=== PATIENT | female | born 1985 | race Caucasian/White ===

== ENCOUNTER 2019-04-25 02:24 | Day surgery (SDC) | payer OTHER, SELFPAY ==
[2019-04-24 12:33] VITALS: BMI 41.3
[2019-04-25 07:49] VITALS: BP 119/63; PULSE 76; RESP 16; TEMP 36.3; O2SAT 97
[2019-04-25] MEDS: LACTATED RINGERS 1,000 ML 150 ML IV CONT (08:07)
--- NOTE | 2019-04-25 08:19 | PM.HPGS ---
History of Present Illness History of Present Illness Consent: Risks, benefits, and alternatives have been discussed and questions answered. Patient agrees to proceed with procedure. Chief complaint: Blood In Stool Narrative: Lisa Brooks is a 33 year old female her menses saw blood in her stools. It was bright red. She also has had a change in bowel habits. She has a great deal of urgency at times and a sensation that she needs to have a bowel movement but may pass very little stool. Her stools also had been loose lately. Meds Home Medications and Allergies Home Medications Medication Instructions Recorded Confirmed Type fluticasone propionate [Flonase 2 spray INTRANASAL DAILY PRN 04/24/19 04/25/19 History Allergy Relief] Allergies Allergy/AdvReac Type Severity Reaction Status Date / Time Sulfa (Sulfonamide Allergy Severe Unknown Unverified 04/25/19 07:47 Antibiotics) Vital Signs Vital Signs - 24 hr 04/25/19 07:49 Temperature 36.3 C L Pulse Rate 76 Respiratory Rate 16 Blood Pressure 119/63 Pulse Oximetry 97 Exam Resp: Auscultation: clear to auscultation bilaterally Cardio: Rate: regular rate Rhythm: regular rhythm GI: GI Palp: Yes Soft to palpation and No Tenderness to palpation present (GI) Assessment and Plan Assessment and plan (1) Colon cancer screening: Code(s): Z12.11 - Encounter for screening for malignant neoplasm of colon Status: Acute
--- NOTE | 2019-04-25 08:37 | WPDANESEPPF ---
Anes - Initial Pre Proc Eval Procedure: Operation Date: 04/25/19 09:00 Proposed Procedures p Colonoscopy - Sherif Vazquez MD Date/Time: 04/25/19 08:37 Surgeon: Sherif Vazquez MD Pre Op Diagnosis: Blood In Stool Patient Data Age: 33 Gender: F Height: 5 ft 6.5 in Weight: 113.3 kg Last Vital Signs Temp 97.4 F L 04/25/19 07:49 Pulse 76 04/25/19 07:49 Resp 16 04/25/19 07:49 BP 119/63 04/25/19 07:49 Pulse Ox 97 04/25/19 07:49 Allergies Allergy/AdvReac Type Severity Reaction Status Date / Time Sulfa (Sulfonamide Allergy Severe Unknown Unverified 04/25/19 07:47 Antibiotics) Home Medications Medication Instructions Recorded Confirmed Type fluticasone propionate [Flonase 2 spray INTRANASAL DAILY PRN 04/24/19 04/25/19 History Allergy Relief] Patient hx anesthesia problems: none Family hx anesthesia problems: none [facility] Past Medical History Medical History (Updated 04/25/19 @ 08:37 by Ken Richard MD) Morbid obesity Social History Social History (Updated 04/25/19 @ 08:38 by Ken Richard MD) Smoking status: Never smoker Alcohol intake: current Anes - Eval Final PreProcedure Day of Procedure 04/25/19 08:37 Patient weight: morbidly obese Heart: regular rate and rhythm Lungs: clear to auscultation Airway: Mallampati scale class II Neurological: alert and oriented Last oral intake: >/= 8 hours ASA classification: III Emergent: no Anesthetic plan: proceed Anesthesia type and monitoring: general GIVS and standard monitoring Informed Consent: The patient's anesthetic plan and its attendant risks and benefits were discussed with the patient/family/POA. Questions were solicited and answers provided to the satisfaction of the patient/family/POA.
[2019-04-25 09:11] VITALS: BP 96/54; PULSE 78; RESP 16; O2SAT 99
[2019-04-25 09:21] VITALS: BP 99/75; PULSE 68; RESP 16; O2SAT 99
--- NOTE | 2019-04-25 09:22 | SUR.PHASEII ---
COVID-19 SHEET GIVEN
== END 2019-04-25 09:43 | disposition home or self-care (01) ==
PROVIDERS: PCP Physician Assistant; Visit Provider Internal Medicine Gastroenterology
PROC: 0DJD8ZZ Inspection of Lower Intestinal Tract, Via Natural or Artificial Opening Endoscopic (ICD-10-PCS; CPT 45378; principal; 2019-04-25 09:00)
DX: K92.1 Melena (principal); K64.8 Other hemorrhoids; E66.01 Morbid (severe) obesity due to excess calories; Z68.39 Body mass index [BMI] 39.0-39.9, adult
CPT/HCPCS: 45380; 88305; J2704; J7120

== ENCOUNTER 2022-07-05 04:42 | Emergency (ER) | payer OTHER, SELFPAY ==
[2022-07-05 04:44] VITALS: BP 141/76; PULSE 100; RESP 14; TEMP 36.4; O2SAT 100
--- NOTE | 2022-07-05 05:12 | ED.ABDPAIN ---
HPI - Abdominal Pain General Chief Complaint: Abdominal Pain Stated Complaint: abd pain Time Seen by Provider: 07/05/22 05:06 History of Present Illness HPI narrative: Patient is a 36-year-old female who presents ER with abdominal pain. Slight discomfort over the weekend however yesterday on 07/04/2022 she began having pain at 10:30 in the morning cramping in right side. Has moved across to her left abdomen become more severe. Also radiates into her left back. No urinary frequency urgency or dysuria. No diarrhea. Normal bowel movements. No nausea or vomiting. Denies fevers or chills or sweats. Has not had similar symptoms before. No history of kidney stones. Denies any falls or injury. Related Data Home Medications Medication Instructions Recorded Confirmed fluticasone propionate 50 2 spray intranasal DAILY PRN 04/24/19 04/25/19 mcg/actuation nasal Congestion spray,suspension (Flonase Allergy Relief) Allergies Allergy/AdvReac Type Severity Reaction Status Date / Time Sulfa (Sulfonamide Allergy Severe Unknown Unverified 04/25/19 08:54 Antibiotics) Review of Systems Review of Systems: All systems reviewed & are unremarkable except as noted in HPI and below Constitutional: Constitutional: Denies chills, Denies fatigue and Denies fever(s) ENT: Denies nasal congestion and Denies sore throat Cardiovascular: Cardiovascular: Denies chest pain, Denies rapid heart rate and Denies radiating jaw, neck or arm pain Respiratory: Respiratory: Denies cough and Denies dyspnea Gastrointestinal: Gastrointestinal: Reports abdominal pain, Denies constipation, Denies diarrhea, Denies nausea and Denies vomiting Genitourinary: Genitourinary: Denies nocturia, Denies dysuria, Denies pelvic pain and Reports flank pain Musculoskeletal: Musculoskeletal: Denies back pain and Denies myalgias PMFSH Past Medical History Medical History (Updated 07/05/22 @ 06:18 by Víctor Mireles MD) Lupus Morbid obesity Surgical History Surgical History (Updated 07/05/22 @ 05:14 by Víctor Mireles MD) No pertinent past surgical history Social History Social History (Updated 04/25/19 @ 08:38 by Ken Richard MD) Smoking status: Never smoker Alcohol intake: current Exam Narrative: GENERAL: Well-appearing, well-nourished, and in no acute distress. HEAD: Normocephalic, atraumatic. ENT: Mucous membranes moist. NECK: Supple. CHEST: Clear to auscultation. No respiratory distress. HEART: Regular rate and rhythm. Normal peripheral pulses. ABDOMEN: Soft, mild discomfort with palpation of the left mid lower quadrant of abdomen, nondistended. EXTREMITIES: Normal range of motion. No edema. SKIN: Warm, dry, no rash. NEURO: Alert and oriented x3. PSYCH: Normal mood and affect. Course Vital Signs Vital signs: Vital Signs Temperature 97.6 F 07/05/22 04:44 Pulse Rate 100 07/05/22 04:44 Respiratory Rate 14 07/05/22 04:44 Blood Pressure 141/76 H 07/05/22 04:44 Pulse Oximetry 100 07/05/22 04:44 Oxygen Delivery Room Air 07/05/22 04:44 Temperature 97.6 F 07/05/22 04:44 Pulse Rate 100 07/05/22 04:44 Respiratory Rate 14 07/05/22 04:44 Blood Pressure 141/76 H 07/05/22 04:44 Pulse Oximetry 100 07/05/22 04:44 Oxygen Delivery Room Air 07/05/22 04:44 MDM - Abdominal Pain Lab Data 07/05/22 05:17 07/05/22 05:17 Labs: Lab Results 07/05/22 Range/Units 05:17 WBC 9.5 (4.5-10.0) K/mm3 RBC 4.62 (4.2-5.4) M/mm3 Hgb 12.9 (12.0-15.0) g/dL Hct 39.3 (37.0-47.0) % MCV 85.1 (80-100) fl MCH 27.9 (26-34) pg MCHC 32.8 (32-36) g/dl RDW 13.3 (11.5-14.5) % Plt Count 323 (150-375) k/mm3 MPV 9.9 (7.4-10.4) fl Immature Gran % (Auto) 0.3 (0-0.5) % Neut % (Auto) 63.1 (45.5-73.1) % Lymph % (Auto) 25.9 (18.3-44.2) % [place] % (Auto) 8.5 (2.6-8.5) % Eos % (Auto) 1.7 (0-4.4) % Baso % (Auto) 0.5 (0.2-1.2) %
[2022-07-05 05:21] VITALS: BP 132/90; PULSE 81; RESP 19; O2SAT 97
[2022-07-05] MEDS: MORPHINE SULFATE (*CRX) 4 MG/ML INJ IV PUSH (05:30)
[2022-07-05 05:31] VITALS: BP 114/65; PULSE 82; RESP 11; O2SAT 98
[2022-07-05 05:34] LABS: Basophils Absolute Auto 0.1 K/mm3 (0.0-0.1); Basophils Percent Auto 0.5 % (0.2-1.2); Eosinophils Absolute Auto 0.2 K/mm3 (0-0.3); Eosinophils Percent Auto 1.7 % (0-4.4); Hematocrit 39.3 % (37.0-47.0); Hemoglobin 12.9 g/dL (12.0-15.0); Immature Granulocyte Absolute 0.03 K/mm3 (0.00-0.031); Immature Granulocyte Percent A 0.3 % (0-0.5); Lymphocytes Absolute Auto 2.45 K/mm3 (0.9-3.2); Lymphocytes Percent Auto 25.9 % (18.3-44.2); Mean Corpuscular HGB Conc 32.8 g/dl (32-36); Mean Corpuscular Hemoglobin 27.9 pg (26-34); Mean Corpuscular Volume 85.1 fl (80-100); Mean Platelet Volume 9.9 fl (7.4-10.4); Monocytes Absolute Auto 0.8 K/mm3 (0.1-0.6); Monocytes Percent Auto 8.5 % (2.6-8.5); Neutrophils Percent Auto 63.1 % (45.5-73.1); Platelet Count Result 323 k/mm3 (150-375); Red Blood Count 4.62 M/mm3 (4.2-5.4); Red Cell Distribution Width 13.3 % (11.5-14.5); White Blood Count 9.5 K/mm3 (4.5-10.0)
[2022-07-05 05:41] LABS: Appearance Urine Turbid (Clear); Bacteria Urine 1+ /hpf; Bilirubin Urine Negative (Negative); Blood Urine 3+ (Negative); Color Urine Yellow (Yellow); Glucose Urine UA Negative (Negative); Ketones Urine Negative (Negative); Leukocyte Esterase Ur 3+ LEU/UL (Negative); Nitrate Urine Negative (Negative); Non Pathogenic Casts 0-2; Protein Urine 2+ mg/dL (Negative); RBC Urine 51-100 /hpf (0-2); Specific Grav Ur 1.011 (1.001-1.035); Squamous Epithelial Cell Urine Occasional /hpf (Few); Urobilinogen Urine 0.2 mg/dL (<2.0); WBC Urine >100 /hpf; pH Urine 5.5 (5.0-9.0)
[2022-07-05 05:42] LABS: Alanine Aminotransferase 22 U/L (6-35); Albumin Level 4.5 g/dL (3.5-5.1); Alkaline Phosphatase 69 U/L (38-126); Anion Gap 9 mmol/L (8-16); Aspartate Amino Transferase 26 U/L (14-36); Bilirubin,Total 1.2 mg/dL (0.2-1.3); Blood Urea Nitrogen 14 mg/dL (7-17); Calcium 8.8 mg/dL (8.4-10.2); Carbon Dioxide 24 mmol/L (22-30); Chloride 107 mmol/L (98-107); Estimated CRCL calculation 103 ml/min; Estimated Glomerular Filt Rate > 60; Glucose 135 mg/dL (65-110); Lipase 108 U/L (23-300); Potassium 4.1 mmol/L (3.4-5.0); Sodium 140 mmol/L (137-145)
[2022-07-05 05:46] LABS: Add Urine Microscopic? YES
--- NOTE | 2022-07-05 05:49 | PC.NURSE ---
Called lab to see if they can run a test on urine that was sent down. Anne-Marie states she will work on it now.
[2022-07-05 06:01] VITALS: BP 126/64; PULSE 74; RESP 18; O2SAT 97
[2022-07-05 06:39] VITALS: BP 126/64; PULSE 85; RESP 16; O2SAT 98
== END 2022-07-05 06:41 | disposition home or self-care (01) ==
PROVIDERS: Emergency Provider Emergency Medicine; PCP Physician Assistant
DX: N39.0 Urinary tract infection, site not specified (principal); E66.01 Morbid (severe) obesity due to excess calories; Z68.42 Body mass index [BMI] 45.0-49.9, adult
CPT/HCPCS: 36415; 80053; 81001; 83690; 85025; 87077; 87086; 87186; 96374; 99284; J2270

== ENCOUNTER 2024-10-22 08:48 | Outpatient (CLI) | payer OTHER, SELFPAY ==
--- NOTE | ~2024-10-22 | XR_ITS ---
Clinical history:Pain for 3 months. No known injury EXAM:X-ray sooner minimum 2 views TECHNIQUE:2 images were obtained. Comparisons:None available FINDINGS: No displaced sternal fracture identified. No obvious sclerotic or destructive bone lesion in the visualized sternum. IMPRESSION: 1. No displaced sternal fracture identified. No obvious sclerotic or destructive bone lesion in the visualized sternum. If symptoms persist or worsen, consider a chest CT with contrast for further assessment. Reviewed, dictated and finalized at location Q. IMPRESSION: 1. No displaced sternal fracture identified. No obvious sclerotic or destructiv e bone lesion in the visualized sternum. If symptoms persist or worsen, consider a chest CT with contrast for further as sessment.
== END 2024-10-22 08:49 | disposition home or self-care (01) ==
PROVIDERS: PCP Physician Assistant; Visit Provider Physician Assistant
DX: R07.89 Other chest pain (principal)
CPT/HCPCS: 71120